=== PATIENT | female | born 1965 | race Caucasian/White ===

== ENCOUNTER → 2023-06-20 09:01 | Outpatient (REF) | payer OTHER, SELFPAY | LOC: RAD 09:01 | PROVIDERS: ATTENDING PHYSICIAN Nurse Practitioner Family | DX: Z13.6 Encounter for screening for cardiovascular disorders (principal) | CPT/HCPCS: 76770 ==

== ENCOUNTER → 2024-06-22 13:22 | Outpatient (REF) | payer OTHER, SELFPAY | LOC: WDC 13:22 | PROVIDERS: ATTENDING PHYSICIAN Nurse Practitioner Family | DX: Z12.31 Encounter for screening mammogram for malignant neoplasm of breast (principal) | CPT/HCPCS: 77063; 77067 ==